=== PATIENT | male | born 1955 | race Caucasian/White ===

== ENCOUNTER 2016-09-11 11:49 | Observation (INO) | payer BC ==
--- NOTE | ~2016-09-11 | OP ---
Record Of Operation [facility] [address] [place]. [address] NAME: BETY SAUCEDO : 53 STATUS : DIS Stan PAT#: [id number] AGE: 61 ADM/REG DATE : 09/11/16 MR#: [id number] REPORT SERV DATE: 09/20/16 DICTATED BY: JOE SNIDER DATE: 09/11/16 REPORT STATUS : Draft TRANSCRIBED BY: MODJeniffer DATE: 09/11/16 DATE OF PROCEDURE: 09/11/2016 PROCEDURE PERFORMED: Aortogram and runoff, angioplasty and stenting of the left external iliac artery placement of a 7 mm x 120 mm SMART stent. SUEDING MACHINE TENDER: Joe Snider M.D. INDICATIONS: Left leg claudication, history of peripheral artery disease, status post angioplasty and stenting of both SFAs and the left popliteal, also has diabetes, hypertension, tobacco, hyperlipidemia, limiting left lower extremity claudication, schizophrenia. TECHNIQUE: After informed written consent was obtained from Mr. Saucedo in this situation, he was brought to the cardiac catheterization laboratory in the afternoon of 09/11/2016 in the fasting state and the time-out was performed and correct patient and operative plan were confirmed. The right coronary was prepped and draped in the usual sterile fashion. Local anesthesia was accomplished using 1% lidocaine. Using modified Seldinger technique and a micropuncture set, a 4-Cameroonian sheath was placed in the right femoral artery with excellent arterial return. The sheath was double flushed and left in place. Using the micro sheath, a femoral angiogram was obtained, which demonstrated good stick in the common femoral artery thought suitable for closure. Using a 4-Cameroonian flush catheter, single plane abdominal aortogram was performed above the level of renal arteries. Catheter was then brought to the iliac bifurcation, bilateral iliac angiography, long leg runoff was then performed. At that time, I decided to perform angioplasty attempt at the left external iliac artery occlusion. The left coronary was prepped and draped in usual sterile fashion. Local anesthesia was accomplished using 1% lidocaine. Using modified Seldinger technique and a micropuncture set, a micro sheath was placed in the left femoral artery with excellent arterial return. The sheath was double flushed and left in place. There was a good stick in the common femoral artery thought suitable for closure. It was above the bifurcation and still had enough purchase below the occlusion. The lesion was wired using an angled Glidewire and an angled glide catheter was advanced to the aorta position where position was confirmed angiographically. The wire was exchanged for an exchange Lee wire and the catheter and sheath were exchanged for a 7-Cameroonian 35 cm Brite Tip sheath which was double flushed and left in place. The patient was given 3000 units of intravenous heparin. Next, a 5 mm x 80 mm Torrey balloon was brought to the lesion site and serial inflations were performed with improved angiographic appearance. The patient was given additional heparin to an ACT of 189 and was given additional 2000 of heparin beyond that. Next a 7 mm x 120 mm SMART stent was brought to the lesion site and carefully positioned using angiographic guidance. The stent was deployed. Deployment mechanism was retrieved intact. Followup angiography confirmed good angiographic result. Postdilatation was then performed using the 5 mm x 80 mm Torrey balloon to a maximum of 10 atmospheres in the superior portion of the stent and 8 atmospheres in the inferior portion of the stent. The sheath was advanced inside the stented region and final angiogram was performed which demonstrated good angiographic results. Record Of [facility] [address] [facility] [place]. [address] NAME: BETY SAUCEDO : 53 STATUS : DIS Stan PAT#: [id number] AGE: 61 ADM/REG DATE : 09/11/16 MR#: [id number] REPORT SERV DATE: 09/20/16 DICTATED BY: JOE SNIDER DATE: 09/11/16 REPORT STATUS : Draft TRANSCRIBED BY: MODL DATE: 09/11/16 Using the flush catheter from the right femoral artery, final angiography was performed with the wire removed with good angiographic result. The patient tolerated the procedure well without apparent complication. He was then returned to his room in good condition for sheath pull by nursing personnel. RESULTS: The abdominal aorta is patent with irregularities below the level of renal arteries. The right renal artery is patent with approximately 25% proximal stenosis. There is good washout of the right kidney. The left renal artery is patent with approximately 50% proximal stenosis. There was good washout of the left kidney. Right common iliac artery has 25% stenosis. Right internal iliac artery 75% stenosis. Right external iliac artery 25% stenosis. Right common femoral artery mild irregularities. Right profunda 75% stenosis. Right SFA 75% ostial lesion. There is a patent stent site in the proximal and mid right SFA. There is approximately 25% mid in-stent restenosis. Popliteal is patent. Anterior tibia is patent. Posterior tibia is patent. Peroneal artery is patent. There is three-vessel runoff on the right. Left common iliac artery has 25% stenosis. Left internal iliac artery 75% stenosis. Left external iliac artery 100% occlusion, just after the origin. Recanalization at the level of the common femoral artery at the superior portion of the femoral head. The profunda is patent. The SFA has patent stent sites, proximal, mid, and distal. There is approximately 50% mid in-stent restenosis. The popliteal artery has patent stent sites with no significant residual stenosis. The left anterior tibial artery has 75% stenosis. Posterior tibial artery is patent. Peroneal artery is patent. There is three-vessel runoff on the left. ACCESS: A 4-Cameroonian RFA, 7-Cameroonian LFA, 7-Cameroonian 35 cm Brite Tip sheath. Closure device none. ESTIMATED BLOOD LOSS: Less than 25 mL. FLUOROSCOPY TIME: 13.9 minutes, mGy 678. CONTRAST: 185 mL nonionic. RESULTS: 1. Totally occluded left external iliac artery just after the origin with recanalization at the level of the common femoral artery at the superior portion of the femoral head. 2. Patent stent site, left SFA and popliteal. 3. Patent stent site, right SFA. 4. 75% left anterior tibial artery stenosis. 5. Three-vessel runoff bilaterally. 6. 50% left renal artery stenosis. RESULTS #1: Successful angioplasty and stenting of the left external iliac artery from 100% pre to 0% post. Record Of Operation [facility] [id number] [facility] [place]. [address] NAME: BETY SAUCEDO : 53 STATUS : DIS Stan PAT#: [id number] AGE: 61 ADM/REG DATE : 09/11/16 MR#: [id number] REPORT SERV DATE: 09/20/16 DICTATED BY: JOE SNIDER DATE: 09/11/16 REPORT STATUS : Draft TRANSCRIBED BY: MODL DATE: 09/11/16 PATIENT DISPOSITION: Short-stay unit. RECOMMENDATIONS: 1. Aspirin and Plavix for least one month and aspirin indefinitely. 2. Pletal 50 mg p.o. b.i.d. 3. Risk factor modification. 4. Ultrasound followup. ADDENDUM: TECHNIQUE: IV moderate sedation was used. CAROLANN/MODL Joe Snider M.D. / [id number] CC: Reg Whitlock MD
[~2016-09-11 11:49] MED LIST: ARTANE 5 MG TAB5 MG PO; ASAB PO; CELEXA20 PO; EZFE 200200 MG PO; GLUCOTRO10 PO; GLUCPH PO; HYDROCHLOROT25 MG PO; LEVOTHYROXIN75 MCG PO; LIPITOR10 PO; NEUR300 PO; NORV5 PO; PLAVIX PO; PLETAL50 PO; PRIN5 PO; PROTONIX PO; RISP3 PO; SYN075 PO; TIROSINT75 MCG PO; TRIHEXYPHEN5 MG PO; V2 PO; ZANTAC150 MG PO; ZOL100 PO
[2016-09-11 12:30] LABS: BASOPHILS 0.4 %; BASOPHILS ABSOLUTE 0.03 10/3/uL (0.0-0.16); EOSINOPHILS 1.7 %; EOSINOPHILS ABSOLUTE 0.12 10/3/uL (0.0-0.53); HEMATOCRIT 35.2 % (40.0-51.0); HEMOGLOBIN 11.4 g/dL (13.6-17.8); IMMATURE GRANULOCYTES 0.1 %; IMMATURE GRANULOCYTES ABSOLUTE 0.01 10/3/uL (0.0-0.11); LYMPHOCYTES 25.7 %; LYMPHOCYTES ABSOLUTE 1.83 10/3/uL (0.67-4.30); MEAN CORPUS HGB CONC 32.4 g/dL (32.0-36.0); MEAN CORPUSCULAR HEMOGLOB 25.6 pg (26.0-34.0); MEAN CORPUSCULAR VOLUME 79.1 fL (80-100); MEAN PLATELET VOLUME 8.4 fL (9.2-13.0); MONOCYTES 7.3 %; MONOCYTES ABSOLUTE 0.52 10/3/uL (0.21-1.20); NEUTROPHILS 64.8 %; NEUTROPHILS ABSOLUTE 4.61 10/3/uL (2.02-8.40); PLATELET COUNT 268 10/3/uL (150-400); RBC DISTRIBUTION WIDTH 17.8 % (12.0-16.0); RED CELL COUNT 4.45 10/6/uL (4.7-6.1); WHITE BLOOD CELLS 7.1 10/3/uL (4.5-10.5)
[2016-09-11 12:31] LABS: MANUAL DIFF NO %
[2016-09-11 12:39] LABS: ALBUMIN 3.7 G/DL (3.5-5.0); ALKALINE PHOSPHATASE 66 U/L (45-117); BUN (BLOOD UREA NITROGEN) 7 MG/DL (6-23); CALCIUM, SERUM 8.6 MG/DL (8.5-10.4); CHLORIDE, SERUM 101 MMOL/L (96-112); CO2 (CARBON DIOXIDE) 27 MMOL/L (24-34); GFR AFRICAN AMERICAN 93 ML/MIN (>=60); GFR NON AFRICAN AMERICAN 80 ML/MIN (>=60); GLOBULIN 3.8 G/DL (2.5-4.1); GLUCOSE, SERUM 113 MG/DL (60-99); POTASSIUM, SERUM 3.8 MMOL/L (3.5-5.3); SGOT(AST) 13 U/L (5-40); SGPT(ALT) 18 U/L (5-65); SODIUM, SERUM 136 MMOL/L (135-148); TOTAL BILIRUBIN 0.6 MG/DL (0-1.2); TOTAL PROTEIN 7.5 G/DL (6.0-8.5)
[2016-09-12] MEDS ORDERED: PLAVIX PO (09:01)
== END 2016-09-12 09:20 | disposition home or self-care (01) ==
LOC: CORLMH 11:49 → SSU1 12:02
PROVIDERS: Internal Medicine Cardiovascular Disease
PROC: 047J34Z Dilation of Left External Iliac Artery with Drug-eluting Intraluminal Device, Percutaneous Approach (ICD-10-PCS; principal; 2016-09-11)
DX: I70.213 Atherosclerosis of native arteries of extremities with intermittent claudication, bilateral legs (principal); I70.1 Atherosclerosis of renal artery; E11.51 Type 2 diabetes mellitus with diabetic peripheral angiopathy without gangrene; I10 Essential (primary) hypertension; F17.210 Nicotine dependence, cigarettes, uncomplicated; E78.2 Mixed hyperlipidemia; J44.9 Chronic obstructive pulmonary disease, unspecified; M19.90 Unspecified osteoarthritis, unspecified site; F32.9 Major depressive disorder, single episode, unspecified; E78.00 Pure hypercholesterolemia, unspecified; Z79.82 Long term (current) use of aspirin; Z79.899 Other long term (current) drug therapy; Z95.820 Peripheral vascular angioplasty status with implants and grafts; Z90.49 Acquired absence of other specified parts of digestive tract; Z98.890 Other specified postprocedural states
CPT/HCPCS: 37221; 75625; 75716; 80053; 82962; 85025; 85347; 93005; 99152; 99153; A9270-GY; C1725; C1769; C1876; C1887; C1894; G0378; J2250; J3010; Q9966